=== PATIENT | female | born 1985 | race Caucasian/White ===

== ENCOUNTER → 2024-08-30 13:51 | Outpatient (BNVA) | payer MEDICAID, SELFPAY | PROVIDERS: Visit Provider Nurse Practitioner | DX: R20.0 Anesthesia of skin (principal); R20.2 Paresthesia of skin | CPT/HCPCS: 80053; 80061; 84443; 85025 ==

== ENCOUNTER → 2024-09-27 13:57 | Outpatient (BNVA) | payer MEDICAID, SELFPAY | PROVIDERS: Visit Provider Nurse Practitioner | DX: R89.9 Unspecified abnormal finding in specimens from other organs, systems and tissues (principal); R20.0 Anesthesia of skin; R20.2 Paresthesia of skin | CPT/HCPCS: 80053; 85025 ==

== ENCOUNTER → 2024-11-13 10:33 | Outpatient (BNVA) | payer MEDICAID, SELFPAY | PROVIDERS: PCP Nurse Practitioner; Visit Provider Physician Assistant | DX: M65.4 Radial styloid tenosynovitis [de Quervain] (principal); M79.642 Pain in left hand | CPT/HCPCS: 73110 ==

== ENCOUNTER 2025-03-19 09:20 | Day surgery (SDC) | payer MEDICAID, SELFPAY ==
[2025-03-19 09:42] VITALS: BP 154/84; PULSE 88; RESP 16; TEMP 36.4; O2SAT 97; BMI 40.4
[2025-03-19] MEDS: acetaminophen 1,000 MG/100 ML PIGGYBACK 400 MG IV (09:56)
--- NOTE | 2025-03-19 10:14 | P.ANESASSM_ITS ---
Pre-Anesthetic Assessment Height/Weight: Height 1.65 m Weight 110.223 kg Temp Pulse Resp BP Pulse Ox O2 Del Method 97.6 F 88 16 154/84 97 Room Air 03/19/25 09:42 03/19/25 09:42 03/19/25 09:42 03/19/25 09:42 03/19/25 09:42 03/19/25 09:42 Operation Date: 03/19/25 11:35 Proposed Procedures p Tenotomy Hand/Wrist De Quervain's Release(Left) - Diaz Sherman, DO Familial anesthetic complications: None Was Beta Henry taken within 24 hours: N/A Was Clonidine taken within 24 hours: N/A Last intake: Intake Last Liquid Date 03/18/25 Last Liquid Time 22:00 Last Solid Date 03/18/25 Last Solid Time 22:00 Social Tobacco and No alcohol Exam alert, oriented x 3, clear to auscultation bilaterally and regular rate & rhythm Airway Mallampati: Class III Dentition: chipped and full Pulmonary Asthma Anesthetic Plan ASA status: 2 Anesthesia: MAC Risk of > 500 ml blood loss (7ml/kg in children): No Medications/Allergies Home Medications ?Medication ?Instructions ?Recorded ?Confirmed ?Last Taken ?Type albuterol sulfate 2.5 mg/3 mL 2.5 mg inhalation Q4H NE N Allergic 09/08/23 03/18/25 Unknown History (0.083 %) solution for nebulization Symptoms fluticasone propionate 50 2 spray intranasal DAILY PRN 09/08/23 03/18/25 Unknown History mcg/actuation nasal Allergy Symptoms spray,suspension (Flonase Allergy Relief) ibuprofen 800 mg tablet 800 mg PO TID 09/08/2303/1803/09/25 History albuterol sulfate 90 mcg/actuation 1 inh inhalation QI D 12/05/23 03/18/25 Unknown History aerosol inhaler cetirizine 10 mg capsule (Allergy 10 mg PO DAILY PRN A llergic 12/05/23 03/18/25 03/18/25 History Relief (cetirizine)) Symptoms omeprazole 40 mg capsule,delayed 40 mg PO DAILY #90 ca ps 09/14/24 03/18/25 03/18/25 Rx release mupirocin 2 % topical ointment 1 applic topical BID #2 2 grams 09/27/24 03/18/25 [facility] montelukast 10 mg tablet 10 mg PO DAILY #90 tabs 09/2303/18/25 03/18/25 Rx estradiol 0.06 mg/24 hr weekly 0.6 mg transdermal .PATIENCE PULIDO 03/18/25 03/18/25 03/17/25 History transdermal patch spironolactone 25 mg tablet 25 mg PO DAILY 03/18/2503/18/25 History tramadol 50 mg tablet 50 mg PO Q6H PRN pain #20 ta bs 03/19/25 Unknown Rx Allergies Allergy/AdvReac Type Severity Reaction Status Date / Time morphine Allergy Severe ADR-Swelling Verified 02/13/25 10:23 of the Eye Sulfa (Sulfonamide Allergy Intermediate ADR-Swelling Verified 02/13/25 10:23 Antibiotics) of the Eye amoxicillin Allergy ADR-Nausea Verified 02/13/25 10:23 clavulanic acid (From Allergy Unknown Verified 02/13/25 10:23 Augmentin) Current Medications Generic Name Dose Route Start Last Admin Trade Name Freq PRN Reason Stop Dose Admin Sodium Chloride 1,000 mls @ 30 mls/hr 03/19/25 09:45 03/19/25 09:57 Sodium Chloride 0.9% IV 03/20/25 09:44 30 mls/hr .Q24H EDILSON Administration PFSH Anesthesia Family History Father Diabetes mellitus, type 2 Heart disease Grandfather Heart disease maternal Grandmother Breast cancer maternal Father Diabetes Denies family history of Chronic kidney disease (CKD) Cancer Thyroid disease Stroke Social History Smoking and tobacco/nicotine status: current every day tobacco/nicotine user Data Anesthesia Cardiac Studies: Echocardiogram 09/30/23
--- NOTE | 2025-03-19 10:32 | P.HP_ITS ---
Same Day Surgery H&P Indication for Procedure/HPI DATE OF PROCEDURE: March 19, 2025 CHIEF COMPLAINT/INDICATIONFOR SURGICAL PROCEDURE: Left wrist de Quervain's disease PREOP DIAGNOSIS: Left wrist de Quervain's disease PLANNED PROCEDURE: Operation Date: 03/19/25 11:35 Proposed Procedures p Tenotomy Hand/Wrist De Quervain's Release(Left) - Diaz Coles, DO Medications/Allergies* Home Medications ?Medication ?Instructions ?Recorded ?Confirmed ?Type albuterol sulfate 2.5 mg/3 mL 2.5 mg inhalation Q4H IN N Allergic 09/08/23 03/18/25 History (0.083 %) solution for nebulization Symptoms fluticasone propionate 50 2 spray intranasal DAILY PRN 09/08/23 03/18/25 History mcg/actuation nasal Allergy Symptoms spray,suspension (Flonase Allergy Relief) ibuprofen 800 mg tablet 800 mg PO TID 09/08/2303/18 History albuterol sulfate 90 mcg/actuation 1 inh inhalation QI D 12/05/23 03/18/25 History aerosol inhaler cetirizine 10 mg capsule (Allergy 10 mg PO DAILY PRN A llergic 12/05/23 03/18/25 History Relief (cetirizine)) Symptoms estradiol 0.06 mg/24 hr weekly 0.6 mg transdermal .PATIENCE MCNULTYY 03/18/25 03/18/25 History transdermal patch spironolactone 25 mg tablet 25 mg PO DAILY 03/18/25 History Allergies/Adverse Reactions Allergy/AdvReac Type Severity Reaction Status Date / Time morphine Allergy Severe ADR-Swelling Verified 02/13/25 10:23 of the Eye Sulfa (Sulfonamide Allergy Intermediate ADR-Swelling Verified 02/13/25 10:23 Antibiotics) of the Eye amoxicillin Allergy ADR-Nausea Verified 02/13/25 10:23 clavulanic acid (From Allergy Unknown Verified 02/13/25 10:23 Augmentin) Current Medications: Generic Name Dose Route Start Last Admin Trade Name Freq PRN Reason Stop Dose Admin Sodium Chloride 1,000 mls @ 30 mls/hr 03/19/25 09:45 03/19/25 09:57 Sodium Chloride 0.9% IV 03/20/25 09:44 30 mls/hr .Q24H EDILSON Administration Pertinent History/Comorbid Conditions* Family History (Updated 08/30/24 @ 13:19 by Natalia Lemus CMA) Father Diabetes Father Diabetes mellitus, type 2 Father Heart disease Father Grandfather maternal Breast cancer Grandmother maternal Denies family history of Chronic kidney disease (CKD) Cancer Thyroid disease Stroke Social History Smoking and tobacco/nicotine status: current every day tobacco/nicotine user Pertinent Exam Findings alert, oriented x 3, operative site marked and procedure specific exam findings Please refer to anesthesia for preoperative heart and lung findings Please refer to detailed orthopedic examination on 02/13/2025 listed below: Left Hand exam-negative Tinel's and positive Phalen's test. no thenar atrophy and no thenar muscle weakness. Full range of motion in fingers and wrist and fingers are warm and well-perfused with normal cap refill under 2 seconds. Radial pulse 2+, no intrinsic muscle weakness noted. Tenderness over radial styloid wrist and positive Priscilla's test. Left Elbow exam-negative Tinel's test Recommendations Risks and benefits of procedure reviewed and Patient/family agree to proceed Surgery/Procedure today Other Plans: Plan to proceed to the OR today for left wrist de Quervain's release patient understands Anzemet's procedure risk benefits complication alternatives surgical nonsurgical treatment options. Understanding risk of surgery patient like to proceed with surgical invention. All questions answered at this time. Coding Level of Care Code Acute Code for Chadwick Montenegro
[2025-03-19] MEDS: ceFAZolin 2,000 MG in sodium chloride 0.9% (plus) 50 ML 100 MG IV (11:00)
[2025-03-19] MEDS: ROPivacaine 0.5% SDV 30 mL 25 MG INJECTION (11:16)
--- NOTE | 2025-03-19 11:23 | W.PM.BPON ---
Date of Procedure: 03/19/2025 Surgeon: Diaz Coles DO Biomedical Equipment Support Specialist(s): None Procedure(s) performed: Left wrist de Quervain's release Findings of the procedure(s): Underwent procedure as planned without issues or complications Estimated blood loss: 3 mL Specimen(s) removed: None Post-operative diagnosis: Left wrist de Quervain's disease
--- NOTE | 2025-03-19 11:25 | P.OP_ITS ---
Operative Report Date of procedure: March 19, 2025 Surgeon: Diaz Coles DO Procedure: Preop Diagnosis: Left wrist de Quervain's disease Post-op diagnosis: Same Procedure done: 1. Left wrist de Quervain's release Surgeon: Diaz Coles DO Anesthesia: MAC (Local) Estimated blood loss: [3]mL Tourniquet time [7]minutes IV fluids: 200 mL Complications: None Findings: See operative report narrative Condition: stable Disposition: same day Brief History: Patient is a pleasant [39]year-old [female] with left wrist de Quervain's disease. Patient has been worked up in the outpatient setting findings and physical examination consistent with this. Patient's failed to respond to conservative treatment at this time. We detailed out patient's risk benefits complication alternatives with surgical and nonsurgical treatment options. Through shared decision making, patient agrees to proceed with surgical intervention of the left wrist de Quervain's release . Patient understands and agrees with current plan. All questions answered. Procedure: Patient seen and evaluated in the preoperative holding area. Consent was reviewed and signed with patient. Correct extremity was marked. Patient was seen evaluated by the anesthesia department once cleared for surgery was brought back to the operative suite. Patient was kept on [facility] in supine position all bony prominences were well-padded patient properly secured to the bed. Left upper extremity was then placed onto an armboard. Patient underwent anesthesia per the anesthesia department. Patient's left upper extremity was then prepped and draped in standard orthopedic fashion. Final timeout performed. Patient received appropriate preoperative antibiotics. Under sterile aseptic technique patient received local anesthesia over the preplanned de Quervain's release incision site. Esmarch was used exsanguinate the lower forearm and Esmarch tourniquet was set at the proximal aspect of the forearm. I then proceeded with the left wrist de Quervain's release.? I marked out the first dorsal compartment a small longitudinal incision was made directly over this.? Sharp scalpel incision was made through skin only switch to [place] di sserenato scissors and protected the superficial branch of the radial nerve as well as neurovascular structures.? I then had direct visualization of the first dorsal compartment sharp scalpel incision I used to then simply incise the first dorsal compartment I switched dissection scissors to release this both proximally and distally to its entirety the EPB tendon did have a subsheath which was subsequently released as well.? I then subsequently used a rag nail and mobilized each tendon that verify no areas of entrapment and this completed the left wrist de Quervain's release. No masses were noted. Tendons appeared healthy. Wound was then thoroughly irrigated. Tourniquet removed. Hemostasis satisfactory with bipolar electrocautery. I then closed the incision with interrupted 3-0 Vicryl suture and interrupted nylon stitches. Xeroform 4 x 4's and a bulky soft dressing was applied to the left upper extremity. Patient was then awakened from anesthesia and taken to PACU in stable condition. Patient tolerated procedure without complications. Disposition: Patient taken to PACU in stable condition recovering well. Dressing clean dry and intact. Patient will receive appropriate discharge instructions as well as pain medication postoperatively. Patient to follow-up with me in the office in 2 weeks. They understand they may be weightbearing as tolerated to the left hand. Patient should keep incision clean dry and intact. Patient understands if any questions or concerns may contact the office.
[2025-03-19 11:30] VITALS: BP 126/81; PULSE 87; RESP 16; TEMP 36.6; O2SAT 100
[2025-03-19 11:35] VITALS: BP 127/78; PULSE 87; RESP 17; O2SAT 97
[2025-03-19 11:40] VITALS: BP 130/79; PULSE 82; RESP 16; O2SAT 99
[2025-03-19 11:45] VITALS: BP 132/75; PULSE 85; RESP 16; TEMP 36.6; O2SAT 98
[2025-03-19 11:48] VITALS: BP 126/83; PULSE 83; RESP 16; O2SAT 100
--- NOTE | 2025-03-19 12:05 | ANE.PACU2 ---
Inpatient post-anesthesia follow up: Airway intact: Yes Vital signs: Temperature 97.8 F Pulse Rate 83 Respiratory Rate 16 Blood Pressure 126/83 Pulse Oximetry 100 Oxygen Delivery Me thod Room Air Oxygen Flow Rate Fraction of Inspir ed Oxygen Hydration adequate: Yes Nausea and vomiting: No Pain level: 1 Mental status: Baseline
== END 2025-03-19 12:05 | disposition home or self-care (01) ==
PROVIDERS: PCP Nurse Practitioner; Visit Provider Student in an Organized Health Care Education/Training Program
PROC: (CPT 25000; principal; 2025-03-19 11:35)
DX: M65.4 Radial styloid tenosynovitis [de Quervain] (principal); F17.200 Nicotine dependence, unspecified, uncomplicated; J45.909 Unspecified asthma, uncomplicated; K21.9 Gastro-esophageal reflux disease without esophagitis
CPT/HCPCS: 25000; J0131; J0690; J1885; J2250; J2704; J2795; J3010; J7030; J9999